=== PATIENT | female | born 1950 | race Hispanic/Latino ===

== ENCOUNTER 2018-03-07 10:30 | Outpatient (CLI) | payer MEDICARE | END 2018-03-07 10:31 | disposition home or self-care (01) | LOC: BICRAD 10:30 | PROVIDERS: ATTEND Family Medicine | DX: I50.9 Heart failure, unspecified (principal); I51.7 Cardiomegaly | CPT/HCPCS: 71046 ==

== ENCOUNTER 2019-08-22 11:56 | Outpatient (CLI) | payer MEDICARE ==
--- NOTE | 2019-08-22 13:04 | MMO ---
Bilateral MAMMO Bilat Screen [facility]. CLINICAL HISTORY: Patient is 69 years old and is seen for screening. The patient has the following family history of breast cancer: daughter, at age 33. The patient has no personal history of cancer. VIEWS: The views performed were: bilateral craniocaudal with tomosynthesis and bilateral mediolateral oblique with tomosynthesis. This study has been interpreted with the assistance of computer-aided detection. MAMMOGRAM FINDINGS: There are scattered fibroglandular densities. Benign calcifications are noted bilaterally. There are no suspicious masses, suspicious calcifications, or new areas of architectural distortion. IMPRESSION: THERE IS NO MAMMOGRAPHIC EVIDENCE OF MALIGNANCY. A ROUTINE FOLLOW-UP MAMMOGRAM IN 1 YEAR IS RECOMMENDED. THE RESULTS OF THIS EXAM WERE SENT TO THE PATIENT. ACR BI-RADS Category 2 - Benign finding MAMMOGRAPHY NOTE: 1. A negative mammogram report should not delay a biopsy if a dominant of clinically suspicious mass is present. 2. Approximately 10% to 15% of breast cancers are not detected by mammography. 3. Adenosis and dense breasts may obscure an underlying neoplasm. Reported by: AGLO HELM MD Electonically Signed: [id number]
== END 2019-08-22 11:57 | disposition home or self-care (01) ==
LOC: BICMAMMO 11:56
PROVIDERS: ATTEND Family Medicine
DX: Z12.31 Encounter for screening mammogram for malignant neoplasm of breast (principal); Z80.3 Family history of malignant neoplasm of breast
CPT/HCPCS: 77063; 77067

== ENCOUNTER 2020-09-23 10:26 | Inpatient (IN) | payer MEDICARE ==
[~2020-09-23 10:26] MED LIST: Dexamethasone 20 MG/5 ML VIAL ONE; Lidocaine 1% PF 5 ML VIAL ONE; Ondansetron PF 4 MG/2 ML Vial ONE; PHENYLEPHRINE-NS 100 MCG/ML 10 ML SYRINGE ONE; PROPOFOL 200 MG/20 ML VIAL ONE; Succinylcholine 200 MG/10 ml SYRINGE FS ONE
--- NOTE | 2020-09-23 11:16 | RAD ---
EXAM: Two views chest PROVIDED CLINICAL HISTORY: Chest pain. Shortness of breath and edema. COMPARISON: 09/23/2019 and 07/24/2020 FINDINGS: Again noted is marked enlargement of the cardiac silhouette. An associated pericardial effusion with be difficult to exclude based on this exam. Pulmonary vasculature is within normal limits. There is atelectasis present at the right lung base. No other interval change. IMPRESSION: Marked cardiomegaly. Associated pericardial effusion cannot be excluded. Atelectasis right lung base.
[2020-09-23 11:17] LABS: #Eosinphils 0.1 thou/uL (0.0-0.7); #Lymphocytes 1.3 thou/uL (1.20-3.40); #Monocytes 0.3 thou/uL (0.11-0.59); #Neutrophils 4.1 thou/uL (1.40-6.50); %Basophils 0.8 % (0.0-1.0); %Eosinophils 1.9 % (0.0-10.0); %Lymphocytes 21.5 % (21.0-51.0); %Monocytes 5.8 % (0.0-10.0); %Neutrophils 69.9 % (42.0-75.0); Mean Corpuscular HGB CONC 31.5 g/dL (32.0-36.0); Mean Corpuscular Hemoglobin 30.6 pg (27.0-31.0); Mean Corpuscular Volume 97.1 fL (78.0-98.0); Mean Platelet Volume 9.6 fL (7.4-10.4); Platelet Count 179 thou/uL (130-400); Red Blood Cell (RBC) Count 5.22 mill/uL (4.20-5.40); White Blood Cell (WBC) Count 5.8 thou/uL (4.8-10.8)
[2020-09-23 11:39] LABS: ALT (SGPT) 18 U/L (8-55); AST (SGOT) 22 U/L (5-34); Albumin 3.5 g/dL (3.4-4.8); Alkaline Phosphatase 77 U/L (40-110); Anion Gap 12 mmol/L (10-20); BUN (Urea Nitrogen) 13 mg/dL (9.8-20.1); Bilirubin, Total 0.7 mg/dL (0.2-1.2); Calc. Creatinine Clearance 0 mL/min (70-130); Calcium 8.8 mg/dL (7.8-10.44); Carbon Dioxide 36 mmol/L (23-31); Chloride 102 mmol/L (98-107); Globulin 2.9 g/dL (2.4-3.5); Glucose 94 mg/dL (83-110); Potassium 3.9 mmol/L (3.5-5.1); Protein, Total 6.4 g/dL (6.0-8.3); Sodium 146 mmol/L (136-145)
[2020-09-23] MEDS ORDERED: EPINEPHrine 1 MG/ML AMP ONE (12:33)
[2020-09-23] MEDS ORDERED: Bupivacaine PF 0.5% 30 ML VIAL ONE (12:33)
[2020-09-23] MEDS ORDERED: Fentanyl 100 MCG/2 ML VIAL ONE (12:50)
[2020-09-23] MEDS ORDERED: Midazolam HCl 2 mg/2 ml Vial ONE (12:50)
[2020-09-23] MEDS ORDERED: Phenylephrine 10 MG/ML VIAL ONE (12:51)
[2020-09-23] MEDS ORDERED: Ketamine 50 MG/ML (10ML VIAL) ONE (12:51)
[2020-09-23 12:55] LABS: SARS-CoV-2 NAA Rapid Test Not Detected (NotDetected)
--- NOTE | 2020-09-23 12:57 | PDOC.HHP ---
Hospitalist HPI - History of Present Illness shortness of breath History of Present Illness: Patient was sent from cardiology clinic for increasing shortness of breath with edema, patient has underlying history of COPD and CHF, patient is also on chronic anticoagulation therapy, patient has worsening shortness of breath for last several days, she had regular visit with cardiology today and subsequently patient was sent to emergency room, patient had echocardiography which showed significantly enlarged pericardial effusion, cardiovascular surgeon was also notified and patient was taken to the OR for pericardial window. Patient was also hypoxic in the clinic, ED Course: BP: 146/77, Pulse: 71, Resp: 17, Temp: 98.4 (Oral), Pain: 0, O2 sat: 97 on (2L Oxygen), Time: 09/23/2020 10:27. VITAL SIGNS TueSep 23, 2020 11:32 CORTES Narayan, Olesya BP: 145/85, MAP: 105, Pulse: 73, Resp: 24 (Non-Labored), Temp: 98.3 (Oral), Pain: 0, O2 sat: 94 on (2L Oxygen), Time: 09/23/2020 11:32. VITAL SIGNS TueSep 23, 2020 12:23 CORTES Hollins, [place] BP: 129/93, MAP: 105, Pulse: 67, Resp: 25 (Non-Labored), Temp: 98.4 (Oral), Pain: 0, O2 sat: 94 on (2L Oxygen), Time: 09/23/2020 12:23. Hospitalist ROS - Review of Systems Constitutional: denies: fever, chills, sweats, weakness, malaise, other ENT: denies: ear pain, ear discharge, nose pain, nose discharge, nose congestion, mouth pain, mouth swelling, throat pain, throat swelling, other Respiratory: reports: shortness of breath, SOB with excertion. denies: cough, dry, hemoptysis, pleuritic pain, sputum, wheezing, other Cardiovascular: reports: edema. denies: chest pain, palpitations, orthopnea, paroxysmal noc. dyspnea, light headedness, other Gastrointestinal: denies: nausea, vomiting, abdominal pain, diarrhea, constipation, melena, hematochezia, other Genitourinary: denies: dysuria, frequency, incontinence, hematuria, retention, other Musculoskeletal: denies: neck pain, shoulder pain, arm pain, back pain, hand pain, leg pain, foot pain, other Skin: denies: rash, lesions, marlene, bruising, other - Medication Medications: KNOWN ALLERGIES No Known Drug Allergies CURRENT MEDICATIONS carvedilol TueSep 23, 2020 11:47 CORTES Hollins, [place] TABLET : Strength - 12.5 mg : ORAL Patient Dose: 1 tab(s) Oral 2 times a day. furosemide oral TueSep 23, 2020 11:47 CORTES Hollins [place] TABLET : Strength - 40 mg : ORAL Patient Dose: 1 tab(s) Oral once a day (in the morning). lisinopril TueSep 23, 2020 11:47 CORTES Hollins Oswaldo TABLET : Strength - 5 mg : ORAL Patient Dose: 10 mg Oral once a day. Xarelto TueSep 23, 2020 11:48 CORTES Hollins Oswaldo tablet : Strength - 10 mg : ORAL Patient Dose: 5 mg Oral 2 times a day. amiodarone oral TueSep 23, 2020 11:49 CORTES Hollins Oswaldo tablet : Strength - 200 mg : ORAL Patient Dose: 200 mg Oral once a day. Resuscitation Status - Order Detail: 09/23/20 12:51 Resuscitation Status Routine Resuscitation Status: FULL: Full Resuscitation Hospitalist History - Past Medical History Other Medical History: Hypertension COPD Chronic diastolic heart failure Chronic atrial fibrillation Chronic anticoagulation - Past Surgical History Other Surgical History: Appendicectomy Cholecystectomy - Family History Other Family History: No strong family history of premature coronary artery disease stroke or cancer - Social History Other Social History: Patient lives at home, no history of tobacco alcohol or illicit drug abuse - Exam General Appearance: NAD, awake alert Eye: PERRL, anicteric sclera ENT: normocephalic atraumatic, no oropharyngeal lesions Neck: symmetric, no JVD, no thyromegaly Heart: no murmur, no gallops, irregular Respiratory: no wheezes, no rales, no ronchi Gastrointestinal: soft, non-tender, normal bowel sounds Extremities: no clubbing, 1+ LE edema Skin: normal turgor, no lesions Neurological: no focal deficits Musculoskeletal: normal tone, normal strength Psychiatric: normal affect, normal behavior, A&O x 3 Hospitalist Results - Labs Result Diagrams: 09/23/20 11:09 09/23/20 11:09 Lab results: WBC 5.8 thou/uL (4.8-10.8) 09/23/20 11:09 Hgb 16.0 g/dL (12.0-16.0) 09/23/20 11:09 Hct 50.7 % (36.0-47.0) H 09/23/20 11:09 MCV 97.1 fL (78.0-98.0) 09/23/20 11:09 Plt Count 179 thou/uL (130-400) 09/23/20 11:09 Neutrophils % 69.9 % (42.0-75.0) 09/23/20 11:09 Sodium 146 mmol/L (136-145) H 09/23/20 11:09 Potassium 3.9 mmol/L (3.5-5.1) 09/23/20 11:09 Chloride 102 mmol/L (98-107) 09/23/20 11:09 Carbon Dioxide 36 mmol/L (23-31) H 09/23/20 11:09 BUN 13 mg/dL (9.8-20.1) 09/23/20 11:09 Creatinine 0.82 mg/dL (0.6-1.1) 09/23/20 11:09 Glucose 94 mg/dL (83-110) 09/23/20 11:09 Calcium 8.8 mg/dL (7.8-10.44) 09/23/20 11:09 Total Bilirubin 0.7 mg/dL (0.2-1.2) 09/23/20 11:09 AST 22 U/L (5-34) 09/23/20 11:09 ALT 18 U/L (8-55) 09/23/20 11:09 Alkaline Phosphatase 77 U/L (40-110) 09/23/20 11:09 Troponin I 0.027 ng/mL (< 0.028) 09/23/20 11:09 B-Natriuretic Peptide 555.2 pg/mL (0-100) H 09/23/20 11:09 Serum Total Protein 6.4 g/dL (6.0-8.3) 09/23/20 11:09 Albumin 3.5 g/dL (3.4-4.8) 09/23/20 11:09 - EKG Interpretation EK lead EKG shows, atrial fibrillation with controlled ventricular response, Rate (beats per minute): 75, Motion artifact. Rate controlled A. fib. QTC 506. Normal axis. - Radiology Interpretation Chest x-ray Status: image reviewed by me Additional Comment: IMPRESSION: Marked cardiomegaly. Associated pericardial effusion cannot be excluded. Atelectasis right lung base. Hospitalist H&P A/P - Problem (1) Acute on chronic diastolic ACC/AHA stage C congestive heart failure Code(s): I50.33 - ACUTE ON CHRONIC DIASTOLIC (CONGESTIVE) HEART FAILURE Status: Acute (2) Pericardial effusion Code(s): I31.3 - PERICARDIAL EFFUSION (NONINFLAMMATORY) Status: Acute (3) COPD (chronic obstructive pulmonary disease) Status: Chronic Qualifiers: Emphysema type: unspecified (4) Atrial fibrillation Code(s): I48.91 - UNSPECIFIED ATRIAL FIBRILLATION Status: Chronic Qualifiers: Atrial fibrillation type: unspecified chronic Qualified Code(s): I48.20 - Chronic atrial fibrillation, unspecified; I48.2 - Chronic atrial fibrillation (5) Chronic anticoagulation Code(s): Z79.01 - [facility] (CURRENT) USE OF ANTICOAGULANTS Status: Chronic (6) Hypertension Code(s): I10 - ESSENTIAL (PRIMARY) HYPERTENSION Status: Chronic Qualifiers: Hypertension type: essential hypertension Qualified Code(s): I10 - Essent ial (primary) hypertension - Plan Plan: Plan Patient is going to go for pericardial window by cardiovascular surgeon and subsequently will closely monitor in IMCU Echocardiography done and result is pending Cardiology consultation Cardiovascular surgeon consultation Monitoring on telemetry floor We will resume her home medication Postoperative care as per cardiothoracic surgeon DVT prophylaxis SCD GI prophylaxis Pepcid 20 mg twice daily CODE STATUS patient is full code
[2020-09-23] MEDS ORDERED: CEFAZOLIN 2 GM in Premix Bag 1 BAG IVPB SCH (13:15)
[2020-09-23] MEDS ORDERED: Zolpidem Tartrate 5 MG TAB PO PRN (13:56)
[2020-09-23] MEDS ORDERED: Bisacodyl 10 MG SUPP PR PRN (13:56)
[2020-09-23] MEDS ORDERED: Calcium Carbonate 500 MG ChewTAB PO PRN (13:56)
[2020-09-23] MEDS ORDERED: Ondansetron PF 4 MG/2 ML Vial IVP PRN (13:56)
[2020-09-23] MEDS ORDERED: Loperamide HCl 2 MG CAP PO PRN (13:56)
[2020-09-23] MEDS ORDERED: Ondansetron ODT 4 MG TAB PO PRN (13:56)
[2020-09-23] MEDS ORDERED: Promethazine HCl 25 MG/ML VIAL SLOW IVP PRN (14:00)
[2020-09-23] MEDS ORDERED: Ondansetron HCl/PF 4 MG/2 ML Vial IVP PRN (14:00)
[2020-09-23] MEDS ORDERED: hydrALAZINE 20 MG/ML VIAL ONE (15:00)
--- NOTE | 2020-09-23 15:39 | RAD ---
EXAM: XR Chest 1 View Portable PROVIDED CLINICAL HISTORY: Respiratory insufficiency COMPARISON: 09/23/2020 10:57 AM FINDINGS: The cardiac silhouette appears enlarged, though less conspicuously so than on prior. Endotracheal tub e is noted, tip of which terminates in the region of the thoracic inlet. Bibasilar subsegmental atelectatic changes are seen. Left pleural fluid cannot be excluded. There is no evidence for pneumot horax. IMPRESSION: As above.
[2020-09-23] MEDS: HYDROcodone/Acetaminophen 5/325 mg Tablet PO PRN ×2 (18:00→21:38)
--- NOTE | 2020-09-23 18:32 | OP ---
DATE OF PROCEDURE: 09/23/2020 PREOPERATIVE DIAGNOSIS: Large symptomatic pericardial effusion. POSTOPERATIVE DIAGNOSIS: Large symptomatic pericardial effusion. PROCEDURE PERFORMED: Pericardial window with biopsy. ANESTHESIA: General endotracheal. ESTIMATED BLOOD LOSS: Minimal. DRAINS: A 19-[place]awaf drain. SPECIMENS: 1. Pericardium for pathology. 2. Pericardial fluid for cytology. DESCRIPTION OF PROCEDURE: After consent was obtained, the patient was brought to the operating room and placed in supine position on the operating table. Appropriate central line was placed and general endotracheal anesthesia was induced. Chest was prepped and draped in usual sterile fashion. A skin incision was made over the xiphoid. Xiphoid was resected. Pericardium was exposed and sharply entered. 1200 mL of clear straw-colored fluid was evacuated. A piece of pericardium was also taken and sent for pathology. A 19-[place] Nawaf drain was placed in the pericardium. Wounds were infiltrated with 0.5% Marcaine with epinephrine. Wounds were then closed in layers and Dermabond applied to the skin. The patient was awakened, extubated, and transferred to the recovery room in stable condition. Needle, sponge, and instrument counts were all reported as correct at the end of the procedure. Job ID: [id number]
[2020-09-23 19:27] LABS: Troponin I 0.044 ng/mL (< 0.028)
[2020-09-23] MEDS: Famotidine 20 MG TAB PO SCH (21:30)
[2020-09-23] MEDS: CEFAZOLIN 2 GM in Premix Bag 1 BAG IVPB SCH (21:31)
[2020-09-24 04:37] LABS: ALT (SGPT) 19 U/L (8-55); AST (SGOT) 27 U/L (5-34); Albumin 3.5 g/dL (3.4-4.8); Alkaline Phosphatase 75 U/L (40-110); Anion Gap 12 mmol/L (10-20); BUN (Urea Nitrogen) 22 mg/dL (9.8-20.1); Bilirubin, Total 0.7 mg/dL (0.2-1.2); Calc. Creatinine Clearance 57 mL/min (70-130); Calcium 8.5 mg/dL (7.8-10.44); Carbon Dioxide 35 mmol/L (23-31); Chloride 99 mmol/L (98-107); Globulin 3.1 g/dL (2.4-3.5); Glucose 136 mg/dL (83-110); Potassium 4.1 mmol/L (3.5-5.1); Protein, Total 6.6 g/dL (6.0-8.3); Sodium 142 mmol/L (136-145)
[2020-09-24 04:41] LABS: #Lymphocytes 0.7 thou/uL (1.20-3.40); #Monocytes 0.6 thou/uL (0.11-0.59); #Neutrophils 11.6 thou/uL (1.40-6.50); %Basophils 0.1 % (0.0-1.0); %Eosinophils 0.1 % (0.0-10.0); %Lymphocytes 5.4 % (21.0-51.0); %Monocytes 4.7 % (0.0-10.0); %Neutrophils 89.7 % (42.0-75.0); Hemoglobin 16.7 g/dL (12.0-16.0); Mean Corpuscular HGB CONC 31.4 g/dL (32.0-36.0); Mean Corpuscular Hemoglobin 30.9 pg (27.0-31.0); Mean Corpuscular Volume 98.4 fL (78.0-98.0); Mean Platelet Volume 10.5 fL (7.4-10.4); Platelet Count 195 thou/uL (130-400); RBC Distribution Width 16.2 % (11.5-14.5); Red Blood Cell (RBC) Count 5.39 mill/uL (4.20-5.40); White Blood Cell (WBC) Count 12.9 thou/uL (4.8-10.8)
[2020-09-24] MEDS: CEFAZOLIN 2 GM in Premix Bag 1 BAG IVPB SCH ×2 (06:06→14:26)
[2020-09-24] MEDS: HYDROcodone/Acetaminophen 5/325 mg Tablet PO PRN ×2 (06:14→18:12)
--- NOTE | 2020-09-24 06:39 | CON ---
DATE OF CONSULTATION: 09/23/2020 HISTORY OF PRESENT ILLNESS: Ms. Augustin is a 70-year-old woman, who was seen in Dr. Reynoso office today and sent to the emergency room. She has a longstanding history of cardiomegaly, atrial fibrillation, severe LVH, and depressed left ventricular ejection fraction. She has had a long-standing pericardial effusion. She had numerous visits for all the above. She has been seen in [place] recently to rule out amyloidosis, which on cardiac MRI was negative. She presents short of breath and just not feeling well today. She has on monitor atrial fibrillation with a ventricular rate in the 60s. Blood pressure is 120/72. She has no chest pain. Oxygen saturations are 98% on 2 L nasal cannula. PAST MEDICAL HISTORY: 1. Cardiomegaly. 2. Depressed left ventricular ejection fraction. 3. Pericardial effusion. 4. Left ventricular hypertrophy. 5. Hypertension. 6. Congestive heart failure. 7. Dyslipidemia. 8. Atrial fibrillation. PAST SURGICAL HISTORY: 1. Cholecystectomy. 2. Appendectomy. ALLERGIES: NONE. CURRENT MEDICATIONS: 1. Carvedilol 12.5 mg b.i.d. 2. Lasix 40 mg daily. 3. Lisinopril 5 mg daily. 4. Xarelto 10 mg b.i.d. 5. Amiodarone 200 mg daily. REVIEW OF SYSTEMS: A 10-point review of systems is performed with the assistance of her daughter and is negative except as above. PHYSICAL EXAMINATION: GENERAL: This is a diminutive elderly woman resting fairly comfortably in the emergency room. VITAL SIGNS: Heart rate is 67, blood pressure is 129/93, temperature is 98.4, oxygen saturations are 98% on 2 L nasal cannula. HEENT: Sclerae nonicteric. Pupils equal and round bilaterally. NECK: Supple. She has no carotid bruit. CHEST: Clear bilaterally with diminished breath sounds. HEART: Rhythm is irregularly irregular. Her heart tones are severely diminished. ABDOMEN: Soft and nontender. EXTREMITIES: There is mild edema. LABORATORY DATA: Of note, hemoglobin is 16, platelet count 179,000. Potassium is 3.9, creatinine is 0.92. Chest x-ray shows extreme cardiomegaly with the heart stretching from one chest wall to the other. Echocardiogram shows a large pericardial effusion. Left ventricular wall is thick. ASSESSMENT AND PLAN: Large pericardial effusion. I have discussed drainage with a pericardial window with the patient and her daughter and they are agreeable for us to proceed. We will make plans for as soon as the operating room is available. Job ID: [id number]
[2020-09-24] MEDS ORDERED: FLU VACC QS2020-21(65YR UP)/PF 240 MCG/0.7 ML SYRINGE IM ONE (09:00)
[2020-09-24] MEDS: Famotidine 20 MG TAB PO SCH ×2 (09:18→20:37)
--- NOTE | 2020-09-24 09:35 | RAD ---
CHEST 1 VIEW: Date: 09/24/2020 INDICATINO: History of post pericardial window procedure. COMPARISON: Prior exam dated 09/23/2020. FINDINGS: There is stable cardiomegaly. The patient has been extubated. There is subsegmental atelectasis persi sting within the left mid lung. Right-sided pleural parenchymal opacity has developed, suspicious for a small right pleural effusion and right basilar atelectasis. No pneumothorax is evident. IMPRESSION: 1. Increasing right-sided pleural effusion and right basilar atelectasis. 2. Persistent left basilar atelectasis. 3. Persistent cardiomegaly and mild pulmonary vascular congestion. POS: BH
[2020-09-24] MEDS: Senokot S 8.6-50 MG TAB PO PRN (12:14)
--- NOTE | 2020-09-24 13:58 | PRG ---
DATE OF SERVICE: 09/24/2020 SUBJECTIVE: Ms. Augustin is status post pericardial window. She had 1200 mL of pericardial fluid drained. Per Dr. Kishore Puckett's note, the fluid appeared straw colored. OBJECTIVE: VITAL SIGNS: Blood pressure 120/67, pulse 85, and temperature afebrile. LUNGS: Clear to auscultation. HEART: Irregularly irregular. ABDOMEN: Soft, nontender, and nondistended. EXTREMITIES: No edema. PERTINENT LABORATORY DATA: Hemoglobin 16.7, white blood cell count 12.9, and platelet count 195. Creatinine 1.07. IMPRESSION: 1. Pericardial effusion status post pericardial window. 2. Atrial fibrillation. 3. Severe hypertrophic cardiomyopathy. RECOMMENDATIONS: Ms. Augustin is doing much better. She had significant amount of fluid drained recently. Eliquis has been discontinued. Her heart rate has been stable despite evidence of 2 large pericardial effusions in the past. I am unsure her atrial fibrillation contributed much to her symptomatology, but we will await in the coming weeks whether she truly was symptomatic from atrial fibrillation or the effusion. Otherwise, I have no further recommendations. Plan is ICD and possible cardioversion as an outpatient. Job ID: [id number]
[2020-09-24] MEDS ORDERED: HumaLOG 300 UNITS/3 ML VIAL SC SCH (16:45)
--- NOTE | 2020-09-24 16:51 | PDOC.HOSPP ---
- Subjective Encounter Date: 09/24/20 Encounter Time: 13:00 Subjective: pt up in bed no complains. - Objective Vital Signs & Weight: Vital Signs (12 hours) Temp Resp Pulse Ox 09/24/20 16:00 97.3 F L 09/24/20 11:33 96.8 F L 09/24/20 07:30 97.0 F L 09/24/20 06:00 20 96 Weight Weight 168 lb Most Recent Monitor Data Heart Rate from ECG 72 NIBP 115/62 NIBP BP-Mean 79 Respiration from ECG 17 SpO2 95 I&O: 09/23/20 09/24/20 09/25/20 06:59 06:59 06:59 Intake Total 290 300 Output Total 500 Balance -210 300 Result Diagrams: 09/25/20 03:31 09/25/20 03:31 Hospitalist ROS - Review of Systems Cardiovascular: denies: chest pain, palpitations, orthopnea, paroxysmal noc. dyspnea, edema, light headedness, other Gastrointestinal: denies: nausea, vomiting, abdominal pain, diarrhea, constipation, melena, hematochezia, other Genitourinary: denies: dysuria, frequency, incontinence, hematuria, retention, other - Medication Medications: Active Medications Generic Name Dose Route Start Last Admin Trade Name Freq PRN Reason Stop Dose Admin Hydrocodone Bitart/Acetaminophen 1 tab 09/23/20 13:56 09/24/20 06:14 Hydrocodone/Acetaminophen 5/325 Mg Tablet PO 1 tab Q4H PRN Administration Moderate Pain (4-6) Famotidine 20 mg 09/23/20 21:00 09/24/20 09:18 Famotidine 20 Mg Tab PO 20 mg BID RHODA Administration Ondansetron HCl 4 mg 09/23/20 13:56 09/24/20 10:13 Ondansetron Pf 4 Mg/2 Ml Vial IVP 4 mg Q6H PRN Administration Nausea/Vomiting Senna/Docusate Sodium 2 tab 09/23/20 13:56 09/24/20 12:14 Senokot S 8.6-50 Mg Tab PO 2 tab BID PRN Administration Constipation - Exam Neck: negative: supple, symmetric, no JVD, no thyromegaly, no lymphadenopathy, no carotid bruit, JVD Heart: negative: RRR, no murmur, no gallops, no rubs, normal peripheral pulses, irregular, diminshed peripheral pulses, murmur present, II/IV, III/IV Respiratory: negative: CTAB, no wheezes, no rales, no ronchi, normal chest expansion, no tachypnea, normal percussion, rales, rhonchi, tachypneic, wheezes Gastrointestinal: negative: soft, non-tender, non-distended, normal bowel sounds, no palpable masses, no hepatomegaly, no splenomegaly, no bruit, no guarding, no rigidity, tender to palpation, distended, diminished bowl sounds, voluntary guarding Hosp A/P (1) Pericardial effusion Code(s): I31.3 - PERICARDIAL EFFUSION (NONINFLAMMATORY) Status: Acute (2) COPD (chronic obstructive pulmonary disease) Status: Chronic Qualifiers: Emphysema type: unspecified (3) Chronic anticoagulation Code(s): Z79.01 - [facility] (CURRENT) USE OF ANTICOAGULANTS Status: Chronic (4) Hypertension Code(s): I10 - ESSENTIAL (PRIMARY) HYPERTENSION Status: Chronic Qualifiers: Hypertension type: essential hypertension Qualified Code(s): I10 - Essential (primary) hypertension - Plan pt is having large output from his argelia. will continue to monitor.
[2020-09-24] MEDS ORDERED: Apixaban 5 MG TAB PO SCH (21:00)
[2020-09-24] MEDS ORDERED: Carvedilol 6.25 MG TAB PO SCH (21:00)
[2020-09-25 04:19] LABS: Hemoglobin 15.6 g/dL (12.0-16.0); Platelet Count 195 thou/uL (130-400)
[2020-09-25] MEDS: Amiodarone 200 MG TAB PO SCH (08:26)
[2020-09-25] MEDS: Multivit, Therapeutic 1 TAB PO SCH (08:26)
[2020-09-25] MEDS: Famotidine 20 MG TAB PO SCH ×2 (08:26→20:32)
[2020-09-25] MEDS ORDERED: Furosemide 40 MG TAB PO SCH (09:00)
[2020-09-25] MEDS ORDERED: Lisinopril 10 MG TAB PO SCH (09:00)
--- NOTE | 2020-09-25 17:21 | PDOC.HOSPP ---
- Subjective Encounter Date: 09/25/20 Encounter Time: 10:30 Subjective: pt up in bed no complains. - Objective Vital Signs & Weight: Vital Signs (12 hours) Temp 09/25/20 16:00 96.8 F L 09/25/20 12:00 96.6 F L 09/25/20 08:00 96.2 F L Weight Weight 168 lb Most Recent Monitor Data Heart Rate from ECG 79 NIBP 139/85 NIBP BP-Mean 103 Respiration from ECG 18 SpO2 99 I&O: 09/24/20 09/25/20 09/26/20 06:59 06:59 06:59 Intake Total 290 840 240 Output Total 500 660 Balance -210 180 240 Result Diagrams: 09/25/20 03:31 09/25/20 03:31 Hospitalist ROS - Review of Systems Cardiovascular: denies: chest pain, palpitations, orthopnea, paroxysmal noc. dyspnea, edema, light headedness, other Gastrointestinal: denies: nausea, vomiting, abdominal pain, diarrhea, constipation, melena, hematochezia, other Genitourinary: denies: dysuria, frequency, incontinence, hematuria, retention, other - Medication Medications: Active Medications Generic Name Dose Route Start Last Admin Trade Name Freq PRN Reason Stop Dose Admin Hydrocodone Bitart/Acetaminophen 1 tab 09/23/20 13:56 09/24/20 18:12 Hydrocodone/Acetaminophen 5/325 Mg Tablet PO 1 tab Q4H PRN Administration Moderate Pain (4-6) Amiodarone HCl 200 mg 09/25/20 09:00 09/25/20 08:26 Amiodarone 200 Mg Tab PO 200 mg DAILY RHODA Administration Famotidine 20 mg 09/23/20 21:00 09/25/20 08:26 Famotidine 20 Mg Tab PO 20 mg BID RHODA Administration Multivitamins 1 tab 09/25/20 09:00 09/25/20 08:26 Multivit, Therapeutic 1 Tab PO 1 tab DAILY RHODA Administration Ondansetron HCl 4 mg 09/23/20 13:56 09/24/20 10:13 Ondansetron Pf 4 Mg/2 Ml Vial IVP 4 mg Q6H PRN Administration Nausea/Vomiting Senna/Docusate Sodium 2 tab 09/23/20 13:56 09/24/20 12:14 Senokot S 8.6-50 Mg Tab PO 2 tab BID PRN Administration Constipation - Exam Heart: negative: RRR, no murmur, no gallops, no rubs, normal peripheral pulses, irregular, diminshed peripheral pulses, murmur present, II/IV, III/IV Respiratory: negative: CTAB, no wheezes, no rales, no ronchi, normal chest expansion, no tachypnea, normal percussion, rales, rhonchi, tachypneic, wheezes Gastrointestinal: negative: soft, non-tender, non-distended, normal bowel sounds, no palpable masses, no hepatomegaly, no splenomegaly, no bruit, no guarding, no rigidity, tender to palpation, distended, diminished bowl sounds, voluntary guarding Extremities: 1+ LE edema Hosp A/P (1) Pericardial effusion Code(s): I31.3 - PERICARDIAL EFFUSION (NONINFLAMMATORY) Status: Acute (2) COPD (chronic obstructive pulmonary disease) Status: Chronic Qualifiers: Emphysema type: unspecified (3) Chronic anticoagulation Code(s): Z79.01 - LONG-TERM (CURRENT) USE OF 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 will check kimani. pt's eliquis is on hold. will discharge when ok with cardio and cv surgery.
[2020-09-25] MEDS: HYDROcodone/Acetaminophen 5/325 mg Tablet PO PRN (20:32)
[2020-09-26] MEDS: Acetaminophen 325 MG TAB PO PRN (06:38)
[2020-09-26] MEDS: Amiodarone 200 MG TAB PO SCH (08:16)
[2020-09-26] MEDS: Multivit, Therapeutic 1 TAB PO SCH (08:16)
[2020-09-26] MEDS: Famotidine 20 MG TAB PO SCH ×2 (08:16→21:19)
--- NOTE | 2020-09-26 14:55 | PDOC.HOSPP ---
- Subjective Encounter Date: 09/26/20 Encounter Time: 10:30 Subjective: pt up in bed no complains - Objective Vital Signs & Weight: Vital Signs (12 hours) Temp 09/26/20 11:50 97.8 F 09/26/20 07:39 96.6 F L 09/26/20 03:56 97.0 F L Weight Weight 168 lb Most Recent Monitor Data Heart Rate from ECG 78 NIBP 127/78 NIBP BP-Mean 94 Respiration from ECG 20 SpO2 89 I&O: 09/25/20 09/26/20 09/27/20 06:59 06:59 06:59 Intake Total 840 795 600 Output Total 660 640 Balance 180 155 600 Result Diagrams: 09/25/20 03:31 09/25/20 03:31 Hospitalist ROS - Review of Systems Cardiovascular: denies: chest pain, palpitations, orthopnea, paroxysmal noc. dyspnea, edema, light headedness, other Gastrointestinal: denies: nausea, vomiting, abdominal pain, diarrhea, constipation, melena, hematochezia, other Genitourinary: denies: dysuria, frequency, incontinence, hematuria, retention, other - Medication Medications: Active Medications Generic Name Dose Route Start Last Admin Trade Name Freq PRN Reason Stop Dose Admin Acetaminophen 650 mg 09/23/20 13:56 09/26/20 06:38 Acetaminophen 325 Mg Tab PO 650 mg Q4H PRN Administration Headache/Fever/Mild Pain (1-3) Hydrocodone Bitart/Acetaminophen 1 tab 09/23/20 13:56 09/25/20 20:32 Hydrocodone/Acetaminophen 5/325 Mg Tablet PO 1 tab Q4H PRN Administration Moderate Pain (4-6) Amiodarone HCl 200 mg 09/25/20 09:00 09/26/20 08:16 Amiodarone 200 Mg Tab PO 200 mg DAILY RHODA Administration Famotidine 20 mg 09/23/20 21:00 09/26/20 08:16 Famotidine 20 Mg Tab PO 20 mg BID RHODA Administration Multivitamins 1 tab 09/25/20 09:00 09/26/20 08:16 Multivit, Therapeutic 1 Tab PO 1 tab DAILY RHODA Administration Ondansetron HCl 4 mg 09/23/20 13:56 09/24/20 10:13 Ondansetron Pf 4 Mg/2 Ml Vial IVP 4 mg Q6H PRN Administration Nausea/Vomiting Senna/Docusate Sodium 2 tab 09/23/20 13:56 09/24/20 12:14 Senokot S 8.6-50 Mg Tab PO 2 tab BID PRN Administration Constipation - Exam Neck: negative: supple, symmetric, no JVD, no thyromegaly, no lymphadenopathy, no carotid bruit, JVD Heart: negative: RRR, no murmur, no gallops, no rubs, normal peripheral pulses, irregular, diminshed peripheral pulses, murmur present, II/IV, III/IV Respiratory: negative: CTAB, no wheezes, no rales, no ronchi, normal chest expansion, no tachypnea, normal percussion, rales, rhonchi, tachypneic, wheezes Hosp A/P (1) Pericardial effusion Code(s): I31.3 - PERICARDIAL EFFUSION (NONINFLAMMATORY) Status: Acute (2) COPD (chronic obstructive pulmonary disease) Status: Chronic Qualifiers: Emphysema type: unspecified (3) Chronic anticoagulation Code(s): Z79.01 - LEGAL BILLING SPECIALIST (CURRENT) USE OF 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 will check kimani. pt's eliquis is on hold. will discharge when ok with cardio and cv surgery. 09/26 patient up in chair continues to have output from ARGELIA. This is her first time getting pericardial effusion. KIMANI sent will monitor. spoke with daughter and updated her.
[2020-09-26] MEDS: HYDROcodone/Acetaminophen 5/325 mg Tablet PO PRN (21:20)
[2020-09-27] MEDS: Famotidine 20 MG TAB PO SCH ×2 (08:57→20:58)
[2020-09-27] MEDS: Multivit, Therapeutic 1 TAB PO SCH (08:57)
[2020-09-27] MEDS: Amiodarone 200 MG TAB PO SCH (08:57)
--- NOTE | 2020-09-27 16:31 | PDOC.HOSPP ---
- Subjective Encounter Date: 09/27/20 Encounter Time: 10:00 Subjective: pt up in bed no complains - Objective Vital Signs & Weight: Vital Signs (12 hours) Temp Pulse Resp BP Pulse Ox 09/27/20 11:05 97.8 F 94 16 166/101 H 96 09/27/20 07:17 96.8 F L Weight Weight 168 lb Most Recent Monitor Data Heart Rate from ECG 79 NIBP 142/91 NIBP BP-Mean 108 Respiration from ECG 19 SpO2 92 I&O: 09/26/20 09/27/20 09/28/20 06:59 06:59 06:59 Intake Total 795 1090 Output Total 640 2805 Balance 155 -1715 Result Diagrams: 09/28/20 04:03 09/28/20 04:03 Hospitalist ROS - Review of Systems Cardiovascular: denies: chest pain, palpitations, orthopnea, paroxysmal noc. dyspnea, edema, light headedness, other Gastrointestinal: denies: nausea, vomiting, abdominal pain, diarrhea, constipation, melena, hematochezia, other Genitourinary: denies: dysuria, frequency, incontinence, hematuria, retention, other - Medication Medications: Active Medications Generic Name Dose Route Start Last Admin Trade Name Freq PRN Reason Stop Dose Admin Acetaminophen 650 mg 09/23/20 13:56 09/26/20 06:38 Acetaminophen 325 Mg Tab PO 650 mg Q4H PRN Administration Headache/Fever/Mild Pain (1-3) Hydrocodone Bitart/Acetaminophen 1 tab 09/23/20 13:56 09/26/20 21:20 Hydrocodone/Acetaminophen 5/325 Mg Tablet PO 1 tab Q4H PRN Administration Moderate Pain (4-6) Amiodarone HCl 200 mg 09/25/20 09:00 09/27/20 08:57 Amiodarone 200 Mg Tab PO 200 mg DAILY RHODA Administration Famotidine 20 mg 09/23/20 21:00 09/27/20 08:57 Famotidine 20 Mg Tab PO 20 mg BID RHODA Administration Multivitamins 1 tab 09/25/20 09:00 09/27/20 08:57 Multivit, Therapeutic 1 Tab PO 1 tab DAILY RHODA Administration Ondansetron HCl 4 mg 09/23/20 13:56 09/24/20 10:13 Ondansetron Pf 4 Mg/2 Ml Vial IVP 4 mg Q6H PRN Administration Nausea/Vomiting Senna/Docusate Sodium 2 tab 09/23/20 13:56 09/24/20 12:14 Senokot S 8.6-50 Mg Tab PO 2 tab BID PRN Administration Constipation - Exam Heart: negative: RRR, no murmur, no gallops, no rubs, normal peripheral pulses, irregular, diminshed peripheral pulses, murmur present, II/IV, III/IV Respiratory: negative: CTAB, no wheezes, no rales, no ronchi, normal chest expansion, no tachypnea, normal percussion, rales, rhonchi, tachypneic, wheezes Gastrointestinal: negative: soft, non-tender, non-distended, normal bowel sounds, no palpable masses, no hepatomegaly, no splenomegaly, no bruit, no guarding, no rigidity, tender to palpation, distended, diminished bowl sounds, voluntary guarding Extremities: negative: no cyanosis, no clubbing, no edema, 1+ LE edema, 2+ LE edema, clubbing Hosp A/P (1) Pericardial effusion Code(s): I31.3 - PERICARDIAL EFFUSION (NONINFLAMMATORY) Status: Acute (2) COPD (chronic obstructive pulmonary disease) Status: Chronic Qualifiers: Emphysema type: unspecified (3) Chronic anticoagulation Code(s): Z79.01 - HEALTH ASSOCIATE (CURRENT) USE OF 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 will check kimani. pt's eliquis is on hold. will discharge when ok with cardio and cv surgery. 09/26 patient up in chair continues to have output from ARGELIA. This is her first time getting pericardial effusion. KIMANI sent will monitor. spoke with daughter and updated her.
[2020-09-27] MEDS: Acetaminophen 325 MG TAB PO PRN (20:58)
[2020-09-28 04:38] LABS: Hemoglobin 15.6 g/dL (12.0-16.0); Platelet Count 197 thou/uL (130-400)
[2020-09-28] MEDS: Amiodarone 200 MG TAB PO SCH (08:44)
[2020-09-28] MEDS: Multivit, Therapeutic 1 TAB PO SCH (08:45)
[2020-09-28] MEDS: Famotidine 20 MG TAB PO SCH ×2 (08:45→21:02)
--- NOTE | 2020-09-28 10:35 | PRG ---
DATE OF SERVICE: 09/28/2020 SUBJECTIVE: Ms. Augustin is having less shortness of breath. Unfortunately, she continues to have significant drainage from pericardial drain. She has had more than 200 mL over the last 24 hours. OBJECTIVE: VITAL SIGNS: Blood pressure 120/59, pulse 65, and temperature 98.1. LUNGS: Clear to auscultation. HEART: Irregularly irregular. ABDOMEN: Soft, nontender, nondistended. EXTREMITIES: No edema. PERTINENT LABORATORY DATA: Include hemoglobin of 15.9. Creatinine 1.07, troponin 0.04. IMPRESSION: 1. Pericardial effusion, status post pericardial window. 2. Atrial fibrillation. 3. Severe left ventricular hypertrophy. RECOMMENDATIONS: 1. Continue to monitor drainage from her pericardial tube. 2. Atrial fibrillation appears controlled. Blood pressure also appears stable. Job ID: [id number]
--- NOTE | 2020-09-28 14:13 | PDOC.HOSPP ---
- Subjective Encounter Date: 09/28/20 Encounter Time: 10:30 Subjective: Patient up in bed no complaints. - Objective Vital Signs & Weight: Vital Signs (12 hours) Temp Pulse Resp BP Pulse Ox 09/28/20 08:00 97.7 F 81 16 167/89 H 96 09/28/20 04:00 98.1 F 65 18 120/59 L 97 Weight Weight 168 lb Most Recent Monitor Data Heart Rate from ECG 79 NIBP 142/91 NIBP BP-Mean 108 Respiration from ECG 19 SpO2 92 I&O: 09/27/20 09/28/20 09/29/20 06:59 06:59 06:59 Intake Total 1090 870 Output Total 2805 225 Balance -5185 645 Result Diagrams: 09/28/20 04:03 09/28/20 04:03 Additional Labs: Accuchecks 09/27/20 20:05 POC Glucose 138 H Hospitalist ROS - Review of Systems Cardiovascular: denies: chest pain, palpitations, orthopnea, paroxysmal noc. dyspnea, edema, light headedness, other Gastrointestinal: denies: nausea, vomiting, abdominal pain, diarrhea, constipation, melena, hematochezia, other Genitourinary: denies: dysuria, frequency, incontinence, hematuria, retention, other - Medication Medications: Active Medications Generic Name Dose Route Start Last Admin Trade Name Freq PRN Reason Stop Dose Admin Acetaminophen 650 mg 09/23/20 13:56 09/27/20 20:58 Acetaminophen 325 Mg Tab PO 650 mg Q4H PRN Administration Headache/Fever/Mild Pain (1-3) Hydrocodone Bitart/Acetaminophen 1 tab 09/23/20 13:56 09/26/20 21:20 Hydrocodone/Acetaminophen 5/325 Mg Tablet PO 1 tab Q4H PRN Administration Moderate Pain (4-6) Amiodarone HCl 200 mg 09/25/20 09:00 09/28/20 08:44 Amiodarone 200 Mg Tab PO 200 mg DAILY RHODA Administration Famotidine 20 mg 09/23/20 21:00 09/28/20 08:45 Famotidine 20 Mg Tab PO 20 mg BID RHODA Administration Multivitamins 1 tab 09/25/20 09:00 09/28/20 08:45 Multivit, Therapeutic 1 Tab PO 1 tab DAILY RHODA Administration Ondansetron HCl 4 mg 09/23/20 13:56 09/24/20 10:13 Ondansetron Pf 4 Mg/2 Ml Vial IVP 4 mg Q6H PRN Administration Nausea/Vomiting Senna/Docusate Sodium 2 tab 09/23/20 13:56 09/24/20 12:14 Senokot S 8.6-50 Mg Tab PO 2 tab BID PRN Administration Constipation - Exam Neck: negative: supple, symmetric, no JVD, no thyromegaly, no lymphadenopathy, no carotid bruit, JVD Heart: negative: RRR, no murmur, no gallops, no rubs, normal peripheral pulses, irregular, diminshed peripheral pulses, murmur present, II/IV, III/IV Respiratory: negative: CTAB, no wheezes, no rales, no ronchi, normal chest expansion, no tachypnea, normal percussion, rales, rhonchi, tachypneic, wheezes Gastrointestinal: negative: soft, non-tender, non-distended, normal bowel sounds, no palpable masses, no hepatomegaly, no splenomegaly, no bruit, no guarding, no rigidity, tender to palpation, distended, diminished bowl sounds, voluntary guarding Hosp A/P (1) Pericardial effusion Code(s): I31.3 - PERICARDIAL EFFUSION (NONINFLAMMATORY) Status: Acute (2) COPD (chronic obstructive pulmonary disease) Status: Chronic Qualifiers: Emphysema type: unspecified (3) Chronic anticoagulation Code(s): Z79.01 - 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 will check kimani. pt's eliquis is on hold. will discharge when ok with cardio and cv surgery. pt continues to have large amount of output from argelia. will check kimani. pt's eliqui s is on hold. will discharge when ok with cardio and cv surgery. 09/26 patient up in chair continues to have output from ARGELIA. This is her first time getting pericardial effusion. KIMANI sent will monitor. spoke with daughter and updated her. 09/28 patient still having significant output from ARGEILA. Discharge when okay with CV surgery and cardiology. Patient may require oxygen at home.
[2020-09-28] MEDS: HYDROcodone/Acetaminophen 5/325 mg Tablet PO PRN (16:03)
[2020-09-28 17:08] LABS: ANA Symphony (Qualitative) POSITIVE (Negative); ANA Symphony (Quantitative) 1.5 Ratio (< 0.7 Negative); CENP IgG Antibody 0.6 EliAU/mL (<7 Negative); Jo-1 IgG Antibody Less than 0.3 EliAU/mL (<7 Negative); RNP70 IgG Antibody Less than 0.3 EliAU/mL (<7 Negative); SSB/La IgG Antibody 1.6 EliAU/mL (<7 Negative); Scleroderma-70 IgG Antibody 0.7 EliAU/mL (<7 Negative); Smith D IgG Antibody 1.7 EliAU/mL (<7 Negative); dsDNA IgG Antibody 1.3 IU/mL (<10 Negative)
[2020-09-29] MEDS: Multivit, Therapeutic 1 TAB PO SCH (09:00)
[2020-09-29] MEDS: Amiodarone 200 MG TAB PO SCH (09:00)
[2020-09-29] MEDS: Famotidine 20 MG TAB PO SCH ×2 (09:00→20:03)
--- NOTE | 2020-09-29 16:30 | PDOC.HOSPP ---
- Subjective Encounter Date: 09/29/20 Encounter Time: 11:20 Subjective: pt up in bed no complains - Objective Vital Signs & Weight: Vital Signs (12 hours) Temp Pulse Resp BP Pulse Ox 09/29/20 15:30 98.5 F 75 18 158/100 H 96 09/29/20 12:06 97.9 F 83 18 142/92 H 96 09/29/20 07:31 98.5 F 82 17 135/88 95 Weight Weight 164 lb 8 oz Most Recent Monitor Data Heart Rate from ECG 79 NIBP 142/91 NIBP BP-Mean 108 Respiration from ECG 19 SpO2 92 I&O: 09/28/20 09/29/20 09/30/20 06:59 06:59 06:59 Intake Total 870 1720 Output Total 225 204 Balance 645 1516 Result Diagrams: 09/28/20 04:03 09/28/20 04:03 Hospitalist ROS - Review of Systems Cardiovascular: denies: chest pain, palpitations, orthopnea, paroxysmal noc. dyspnea, edema, light headedness, other Gastrointestinal: denies: nausea, vomiting, abdominal pain, diarrhea, constipation, melena, hematochezia, other Genitourinary: denies: dysuria, frequency, incontinence, hematuria, retention, other - Medication Medications: Active Medications Generic Name Dose Route Start Last Admin Trade Name Freq PRN Reason Stop Dose Admin Acetaminophen 650 mg 09/23/20 13:56 09/27/20 20:58 Acetaminophen 325 Mg Tab PO 650 mg Q4H PRN Administration Headache/Fever/Mild Pain (1-3) Hydrocodone Bitart/Acetaminophen 1 tab 09/23/20 13:56 09/28/20 16:03 Hydrocodone/Acetaminophen 5/325 Mg Tablet PO 1 tab Q4H PRN Administration Moderate Pain (4-6) Amiodarone HCl 200 mg 09/25/20 09:00 09/29/20 09:00 Amiodarone 200 Mg Tab PO 200 mg DAILY RHODA Administration Famotidine 20 mg 09/23/20 21:00 09/29/20 09:00 Famotidine 20 Mg Tab PO 20 mg BID RHODA Administration Multivitamins 1 tab 09/25/20 09:00 09/29/20 09:00 Multivit, Therapeutic 1 Tab PO 1 tab DAILY RHODA Administration Ondansetron HCl 4 mg 09/23/20 13:56 09/24/20 10:13 Ondansetron Pf 4 Mg/2 Ml Vial IVP 4 mg Q6H PRN Administration Nausea/Vomiting Senna/Docusate Sodium 2 tab 09/23/20 13:56 09/24/20 12:14 Senokot S 8.6-50 Mg Tab PO 2 tab BID PRN Administration Constipation - Exam Neck: negative: supple, symmetric, no JVD, no thyromegaly, no lymphadenopathy, no carotid bruit, JVD Heart: negative: RRR, no murmur, no gallops, no rubs, normal peripheral pulses, irregular, diminshed peripheral pulses, murmur present, II/IV, III/IV Respiratory: negative: CTAB, no wheezes, no rales, no ronchi, normal chest expansion, no tachypnea, normal percussion, rales, rhonchi, tachypneic, wheezes Hosp A/P (1) Pericardial effusion Code(s): I31.3 - PERICARDIAL EFFUSION (NONINFLAMMATORY) Status: Acute (2) COPD (chronic obstructive pulmonary disease) Status: Chronic Qualifiers: Emphysema type: unspecified (3) Chronic anticoagulation Code(s): Z79.01 - HALFWAY (CURRENT) USE OF 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 will check kimani. pt's eliquis is on hold. will discharge when ok with cardio and cv surgery. pt continues to have large amount of output from argelia. will check kimani. pt's eliquis is on hold. will discharge when ok with cardio and cv surgery. 09/26 patient up in chair continues to have output from ARGELIA. This is her first time getting pericardial effusion. KIMANI sent will monitor. spoke with daughter and updated her. 09/28 patient still having significant output from ARGELIA. Discharge when okay with CV surgery and cardiology. Patient may require oxygen at home. 09/29 patient's KIMANI is positive appears SSA is positive most likely Sjogren's syndrome. Using a sports athletic trainer explained this to the patient and the patient's son. Patient will follow up with rheumatology once she is okay to go home from CV surgery's perspective. She continues to have significant output from her ARGELIA drain.
[2020-09-29] MEDS: HYDROcodone/Acetaminophen 5/325 mg Tablet PO PRN (20:03)
--- NOTE | 2020-09-30 08:05 | PDOC.HOSPP ---
- Subjective Encounter Date: 09/30/20 Encounter Time: 08:03 Subjective: Patient seen and examined. No new complaints. No overnight events. Patient says she feels good. Says her RUTH drain has not been draining as much. Says she has not had BM in 1-2 days. Denies N/V. Denies chest pain, heart palpitations or SOB. Has no other questions. - Objective Vital Signs & Weight: Vital Signs (12 hours) Temp Pulse Resp BP Pulse Ox 09/30/20 03:34 98.6 F 71 16 139/79 98 09/30/20 00:00 72 Weight Weight 164 lb 8 oz Most Recent Monitor Data Heart Rate from ECG 79 NIBP 142/91 NIBP BP-Mean 108 Respiration from ECG 19 SpO2 92 I&O: 09/29/20 09/30/20 10/01/20 06:59 06:59 06:59 Intake Total 1720 1080 Output Total 204 65 90 Balance 1516 1015 -90 Result Diagrams: 09/28/20 04:03 09/28/20 04:03 EKG Reviewed by me: Yes Hospitalist ROS - Review of Systems Constitutional: denies: fever, chills Cardiovascular: denies: chest pain, palpitations, edema, light headedness Gastrointestinal: denies: nausea, vomiting, abdominal pain, diarrhea, melena, hematochezia Genitourinary: denies: dysuria, hematuria Neurological: denies: weakness, change in speech All other systems reviewed; all pertinent +/- noted in HPI/Subj - Medication Medications: Active Medications Generic Name Dose Route Start Last Admin Trade Name Freq PRN Reason Stop Dose Admin Acetaminophen 650 mg 09/23/20 13:56 09/27/20 20:58 Acetaminophen 325 Mg Tab PO 650 mg Q4H PRN Administration Headache/Fever/Mild Pain (1-3) Hydrocodone Bitart/Acetaminophen 1 tab 09/23/20 13:56 09/29/20 20:03 Hydrocodone/Acetaminophen 5/325 Mg Tablet PO 1 tab Q4H PRN Administration Moderate Pain (4-6) Amiodarone HCl 200 mg 09/25/20 09:00 09/29/20 09:00 Amiodarone 200 Mg Tab PO 200 mg DAILY RHODA Administration Famotidine 20 mg 09/23/20 21:00 09/29/20 20:03 Famotidine 20 Mg Tab PO 20 mg BID RHODA Administration Multivitamins 1 tab 09/25/20 09:00 09/29/20 09:00 Multivit, Therapeutic 1 Tab PO 1 tab DAILY RHODA Administration Ondansetron HCl 4 mg 09/23/20 13:56 09/24/20 10:13 Ondansetron Pf 4 Mg/2 Ml Vial IVP 4 mg Q6H PRN Administration Nausea/Vomiting Senna/Docusate Sodium 2 tab 09/23/20 13:56 09/24/20 12:14 Senokot S 8.6-50 Mg Tab PO 2 tab BID PRN Administration Constipation - Exam General Appearance: awake alert. negative: NAD, ill appearing Eye: anicteric sclera ENT: normocephalic atraumatic Heart: irregular. negative: no murmur, no gallops, no rubs Respiratory: CTAB, no wheezes, no rales, no ronchi, normal chest expansion, no tachypnea Gastrointestinal: soft, non-tender, non-distended, normal bowel sounds, no guarding, no rigidity Extremities: no cyanosis, no edema Skin: no rashes Neurological: no focal deficits Psychiatric: normal affect, A&O x 3 (singaporean speaker) Hosp A/P (1) Pericardial effusion Code(s): I31.3 - PERICARDIAL EFFUSION (NONINFLAMMATORY) Status: Acute (2) Acute on chronic diastolic ACC/AHA stage C congestive heart failure Code(s): I50.33 - ACUTE ON CHRONIC DIASTOLIC (CONGESTIVE) HEART FAILURE Status: Acute (3) Atrial fibrillation Code(s): I48.91 - UNSPECIFIED ATRIAL FIBRILLATION Status: Chronic Qualifiers: Atrial fibrillation type: unspecified chronic Qualified Code(s): I48.20 - Chronic atrial fibrillation, unspecified; I48.2 - Chronic atrial fibrillation (4) COPD (chronic obstructive pulmonary disease) Status: Chronic Qualifiers: Emphysema type: unspecified (5) Hypertension Code(s): I10 - ESSENTIAL (PRIMARY) HYPERTENSION Status: Chronic Qualifiers: Hypertension type: essential hypertension Qualified Code(s): I10 - Essentia l (primary) hypertension - Plan Plan: POD# 7 pericardial window RUTH drain had 65ml and 90mls output last 24 hours. Serous drainage. Patient may require oxygen at home. Discharge pending cardiology and [facility] recommendations. Continue to hold eliquis. Patient to follow up outpatient with Rheumatology. Discussed case with attending physician, Dr. Garner.
[2020-09-30] MEDS: Multivit, Therapeutic 1 TAB PO SCH (08:39)
[2020-09-30] MEDS: Amiodarone 200 MG TAB PO SCH (08:39)
[2020-09-30] MEDS: Famotidine 20 MG TAB PO SCH ×2 (08:39→20:55)
[2020-09-30] MEDS: Senokot S 8.6-50 MG TAB PO PRN (08:41)
[2020-10-01 05:14] LABS: #Eosinphils 0.1 thou/uL (0.0-0.7); #Lymphocytes 1.6 thou/uL (1.20-3.40); #Monocytes 0.6 thou/uL (0.11-0.59); #Neutrophils 3.2 thou/uL (1.40-6.50); %Basophils 0.6 % (0.0-1.0); %Eosinophils 1.4 % (0.0-10.0); %Lymphocytes 29.2 % (21.0-51.0); %Monocytes 11.3 % (0.0-10.0); %Neutrophils 57.6 % (42.0-75.0); Hemoglobin 16.7 g/dL (12.0-16.0); Mean Corpuscular HGB CONC 31.7 g/dL (32.0-36.0); Mean Corpuscular Hemoglobin 29.7 pg (27.0-31.0); Mean Corpuscular Volume 93.6 fL (78.0-98.0); Mean Platelet Volume 9.8 fL (7.4-10.4); Platelet Count 199 thou/uL (130-400); RBC Distribution Width 15.8 % (11.5-14.5); Red Blood Cell (RBC) Count 5.61 mill/uL (4.20-5.40); White Blood Cell (WBC) Count 5.6 thou/uL (4.8-10.8)
[2020-10-01 05:26] LABS: Anion Gap 13 mmol/L (10-20); BUN (Urea Nitrogen) 16 mg/dL (9.8-20.1); Calc. Creatinine Clearance 73 mL/min (70-130); Carbon Dioxide 28 mmol/L (23-31); Chloride 103 mmol/L (98-107); Glucose 90 mg/dL (83-110); Potassium 4.2 mmol/L (3.5-5.1); Sodium 140 mmol/L (136-145)
[2020-10-01] MEDS: Multivit, Therapeutic 1 TAB PO SCH (08:22)
[2020-10-01] MEDS: Famotidine 20 MG TAB PO SCH ×2 (08:22→21:26)
[2020-10-01] MEDS: Amiodarone 200 MG TAB PO SCH (08:22)
[2020-10-01] MEDS: methylPREDNISolone Sod Succ/PF 125 MG/2 ML VIAL IVP SCH (11:10)
--- NOTE | 2020-10-01 15:27 | PDOC.HOSPP ---
- Subjective Encounter Date: 10/01/20 Encounter Time: 09:00 Subjective: pt up in bed feels well - Objective Vital Signs & Weight: Vital Signs (12 hours) Temp Pulse Resp BP Pulse Ox 10/01/20 11:40 97.8 F 78 17 132/75 93 L 10/01/20 07:50 98.5 F 72 17 125/74 90 L 10/01/20 03:41 98.7 F 78 18 138/78 94 L Weight Weight 162 lb 3.2 oz Most Recent Monitor Data Heart Rate from ECG 79 NIBP 142/91 NIBP BP-Mean 108 Respiration from ECG 19 SpO2 92 I&O: 09/30/20 10/01/20 10/02/20 06:59 06:59 06:59 Intake Total 1080 840 Output Total 65 230 Balance 1015 610 Result Diagrams: 10/01/20 04:09 10/01/20 04:09 Hospitalist ROS - Review of Systems Respiratory: denies: cough, dry, shortness of breath, hemoptysis, SOB with excertion, pleuritic pain, sputum, wheezing, other Cardiovascular: denies: chest pain, palpitations, orthopnea, paroxysmal noc. dyspnea, edema, light headedness, other Gastrointestinal: denies: nausea, vomiting, abdominal pain, diarrhea, constipation, melena, hematochezia, other - Medication Medications: Active Medications Generic Name Dose Route Start Last Admin Trade Name Freq PRN Reason Stop Dose Admin Acetaminophen 650 mg 09/23/20 13:56 09/27/20 20:58 Acetaminophen 325 Mg Tab PO 650 mg Q4H PRN Administration Headache/Fever/Mild Pain (1-3) Hydrocodone Bitart/Acetaminophen 1 tab 09/23/20 13:56 09/29/20 20:03 Hydrocodone/Acetaminophen 5/325 Mg Tablet PO 1 tab Q4H PRN Administration Moderate Pain (4-6) Amiodarone HCl 200 mg 09/25/20 09:00 10/01/20 08:22 Amiodarone 200 Mg Tab PO 200 mg DAILY RHODA Administration Famotidine 20 mg 09/23/20 21:00 10/01/20 08:22 Famotidine 20 Mg Tab PO 20 mg BID RHODA Administration Methylprednisolone Sodium Succinate 125 mg 10/01/20 12:00 10/01/20 11:10 Methylprednisolone Sod Succ/Pf 125 Mg/2 Ml Vial IVP 125 mg 1200 RHODA Administration Multivitamins 1 tab 09/25/20 09:00 10/01/20 08:22 Multivit, Therapeutic 1 Tab PO 1 tab DAILY RHODA Administration Ondansetron HCl 4 mg 09/23/20 13:56 09/24/20 10:13 Ondansetron Pf 4 Mg/2 Ml Vial IVP 4 mg Q6H PRN Administration Nausea/Vomiting Senna/Docusate Sodium 2 tab 09/23/20 13:56 09/30/20 08:41 Senokot S 8.6-50 Mg Tab PO 2 tab BID PRN Administration Constipation - Exam Heart: negative: RRR, no murmur, no gallops, no rubs, normal peripheral pulses, irregular, diminshed peripheral pulses, murmur present, II/IV, III/IV Respiratory: negative: CTAB, no wheezes, no rales, no ronchi, normal chest expansion, no tachypnea, normal percussion, rales, rhonchi, tachypneic, wheezes Gastrointestinal: negative: soft, non-tender, non-distended, normal bowel sounds, no palpable masses, no hepatomegaly, no splenomegaly, no bruit, no guarding, no rigidity, tender to palpation, distended, diminished bowl sounds, voluntary guarding Hosp A/P (1) Pericardial effusion Code(s): I31.3 - PERICARDIAL EFFUSION (NONINFLAMMATORY) Status: Acute (2) COPD (chronic obstructive pulmonary disease) Status: Chronic Qualifiers: Emphysema type: unspecified (3) Chronic anticoagulation Code(s): Z79.01 - 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 will check kimani. pt's eliquis is on hold. will discharge when ok with cardio and cv surgery. pt continues to have large amount of output from argelia. will check kimani. pt's eliquis is on hold. will discharge when ok with cardio and cv surgery. 09/26 patient up in chair continues to have output from ARGELIA. This is her first time getting pericardial effusion. KIMANI sent will monitor. spoke with daughter and updated her. 09/28 patient still having significant output from ARGELIA. Discharge when okay with CV surgery and cardiology. Patient may require oxygen at home. 09/29 patient's KIMANI is positive appears SSA is positive most likely Sjogren's syndrome. Using a seismic interpreter explained this to the patient and the patient's son. Patient will follow up with rheumatology once she is okay to go home from CV surgery's perspective. She continues to have significant output from her ARGELIA drain. 10/01 pt having significant output from her argelia. I spoke with Dr Olea and started pt on steroids. He also recommended colchine but bc she is on amio will hold. I am hoping that this will help with slowing down her drainage. her pericardial drainage is serous.
[2020-10-02 06:25] VITALS: BMI 30.8
[2020-10-02 09:14] VITALS: BP 135/83; TEMP 97.7
[2020-10-02] MEDS: Multivit, Therapeutic 1 TAB PO SCH (09:19)
[2020-10-02] MEDS: Amiodarone 200 MG TAB PO SCH (09:19)
[2020-10-02] MEDS: Famotidine 20 MG TAB PO SCH (09:19)
[2020-10-02] MEDS: methylPREDNISolone Sod Succ/PF 125 MG/2 ML VIAL IVP SCH (11:35)
--- NOTE | 2020-10-02 12:54 | PDOC.DS.DS ---
Provider - Provider Date of Admission: 09/23/20 13:56 Date of Discharge: 10/02/20 Admitting Provider: Ghada Cerda MD Consultations: Cardiology (Edgardo), Other (CV surgery: Dr. Kishore Puckett) Primary Care Physician: AURELIA LOPEZ JR, MD Course - Hospital Course Hospital Course: Discharge diagnosis: 1. Pericardial effusion 2. New diagnosis of Sjogren's syndrome 3. Hypernatremia 4. COVID-19 PCR test negative Hospital course: Patient is a pleasant 70-year-old lady who was admitted to the hospital on September 23, 2020 for large pericardial effusion. She was seen by cardiology and CV surgery services and underwent pericardial window with biopsy. Cytology showed mesothelial cells, lymphocytes and neutrophils but no malignant cells. Pericardial biopsy did not show any malignancy and no significant inflammation. Patient was initially admitted to [facility], subsequently transferred to telemetry floor. She had further tests run to determine the etiology of pericardial effusion. MARCELL screen was positive and SS-AA/Ro IgG antibody was positive. The case was discussed with rheumatology service by the attending hospitalist and it was recommended that patient be started on prednisone and follow-up with eumatologist as outpatient. Patient's beta-ashwini and SOFIA inhibitor doses were also decreased due to slightly low blood pressures. COVID-19 PCR test was negative during this hospitalization. CV surgery recommended resuming apixaban. Patient is being discharged home on prednisone 20 mg daily for 7 days, then 10 mg daily as well as Protonix 40 mg daily for GI protection. Many thanks for allowing me to participate in your patient's care. Please feel free to contact me with any questions or concerns. Discharge destination: Home Total amount of time spent coordinating this discharge: 32 minutes Resuscitation Status: 09/23/20 12:51 Resuscitation Status Routine Resuscitation Status: FULL: Full Resuscitation - Labs Lab Results: 10/01/20 04:09 10/01/20 04:09 Abnormal Lab Results - Last 48 hrs 10/01/20 04:09: RBC 5.61 H, Hgb 16.7 H, Hct 52.5 H, MCHC 31.7 L, RDW 15.8 H, Monocytes % 11.3 H, Monocytes # 0.6 H - Physical Exam Vitals: Vital Signs (12 hours) Temp Pulse Resp BP Pulse Ox 10/02/20 12:05 92 L 10/02/20 08:57 97.7 F 70 12 135/83 92 L 10/02/20 04:58 95 10/02/20 04:00 97.6 F 74 14 152/79 H 95 Weight Weight 163 lb Most Recent Monitor Data Heart Rate from ECG 79 NIBP 142/91 NIBP BP-Mean 108 Respiration from ECG 19 SpO2 92 Physical Exam: The patient was seen and examined on the day of discharge. Patient denies chest pain or shortness of breath. Vital signs are stable. S1 and S2 are heard. Lungs are clear to auscultation bilaterally. Plan - Discharge Medications Prescriptions: Carvedilol [Coreg] 3.125 mg PO BID-WM #60 tab Lisinopril [Zestril] 5 mg PO DAILY #30 tab Home Medications: Medication Instructions Recorded Confirmed Type Amiodarone HCl [Pacerone] 1 tab PO DAILY 09/24/20 09/24/20 History Apixaban [Eliquis] 5 mg PO BID 09/24/20 09/24/20 History Furosemide 1 tab PO DAILY 09/24/20 09/24/20 History Multivit, Therapeutic [Theragran] 1 tab PO DAILY 09/24/20 09/24/20 History Carvedilol [Coreg] 3.125 mg PO BID-WM #60 tab 10/02/20 Rx Lisinopril [Zestril] 5 mg PO DAILY #30 tab 10/02/20 Rx Pantoprazole [Protonix] 40 mg PO DAILY tab 10/02/20 Rx predniSONE 20 mg PO QAM-WM tab 10/02/20 Rx Allergies: No Known Allergies Allergy (Verified 09/23/20 22:38) - Discharge Instructions Discharge Instructions:: Check your blood pressure and heart rate 3 times a day and shows readings to your primary care provider. Activity:: Activity as Tolerated Nourishment:: Heart Healthy Diet, Low Sodium Diet - Follow up Plan Referrals: Aurelia Lopez Jr, MD [Primary Care Provider] - 3 Days Sukhdev Olea MD [Active] - 7 Days Disposition: HOME Quality - Care Measures CORE MEASURES:: N/A
[2020-10-02] MEDS ORDERED: Carvedilol 3.125 MG TAB PO SCH (17:00)
[2020-10-03] MEDS ORDERED: predniSONE 20 MG TAB PO SCH (08:00)
[2020-10-03] MEDS ORDERED: Lisinopril 5 MG TAB PO SCH (09:00)
--- NOTE | 2020-10-04 14:47 | EKG ---
Test Reason : SOB Blood Pressure : / mmHG Vent. Rate : 075 BPM Atrial Rate : 081 BPM P-R Int : 000 ms QRS Dur : 100 ms QT Int : 454 ms P-R-T Axes : 000 -04 142 degrees QTc Int : 506 ms Atrial fibrillation rate controlled Abnormal ECG Baseline Artifact Present Confirmed by THU BRASWELL DO ([id number]), medical transcription editor CESARIO DENISE ([id number]) on 10/04/2020 2:46:47 PM Referred By: Confirmed By:THU BRASWELL DO
== END 2020-10-02 14:28 | disposition home health service (06) | DRG 270 ==
LOC: ERS 10:26 → SDC 13:27 → IMCU/EMU 13:56 → 2NO 09-27 12:37
PROVIDERS: ADMIT Internal Medicine; ATTEND Internal Medicine
PROC: 0W9D00Z Drainage of Pericardial Cavity with Drainage Device, Open Approach (ICD-10-PCS; principal; 2020-09-23)
PROC: 02BN0ZX Excision of Pericardium, Open Approach, Diagnostic (ICD-10-PCS; 2020-09-23)
DX: I31.3 Pericardial effusion (noninflammatory) (principal); I50.33 Acute on chronic diastolic (congestive) heart failure; E87.0 Hyperosmolality and hypernatremia; I48.20 Chronic atrial fibrillation, unspecified; I42.2 Other hypertrophic cardiomyopathy; Z20.828 Contact with and (suspected) exposure to other viral communicable diseases; M35.00 Sjogren syndrome, unspecified; I11.0 Hypertensive heart disease with heart failure; E78.5 Hyperlipidemia, unspecified; Z79.01 Long term (current) use of anticoagulants; Z90.49 Acquired absence of other specified parts of digestive tract; Z79.899 Other long term (current) drug therapy
CPT/HCPCS: 36415; 36416; 71045; 71046; 80048; 80053; 82565; 83880; 84484; 85014; 85018; 85025; 85049; 86038; 86225; 86235; 88112; 88305; 93005; 93306; 94760; J0171; J0360; J0690; J1100; J2250; J2370; J2405; J2704; J2930; J3010; J7620; S0020; U0002

== ENCOUNTER 2020-12-23 14:36 | Outpatient (CLI) | payer MEDICARE, OTHER | END 2020-12-23 14:37 | disposition home or self-care (01) | LOC: HS RAD 14:36 | PROVIDERS: ATTEND Student in an Organized Health Care Education/Training Program | DX: I69.391 Dysphagia following cerebral infarction (principal); R13.13 Dysphagia, pharyngeal phase | CPT/HCPCS: 74230 ==

== ENCOUNTER 2021-01-21 12:09 | Outpatient (CLI) | payer MEDICARE | END 2021-01-21 12:10 | disposition home or self-care (01) | LOC: CT 12:09 | PROVIDERS: ATTEND Orthopaedic Surgery | DX: I63.9 Cerebral infarction, unspecified (principal) | CPT/HCPCS: 70450 ==

== ENCOUNTER 2022-04-05 20:31 | Inpatient (IN) | payer MEDICARE ==
[2022-04-05] MEDS ORDERED: Cefepime 2 GM VIAL ONE (21:35)
[2022-04-05] MEDS ORDERED: Sodium Chloride 0.9% 100 ML ONE (21:36)
[2022-04-05] MEDS ORDERED: Acetaminophen 500 MG TAB ONE (21:38)
[2022-04-05 21:40] LABS: #Lymphocytes 1.4 thou/uL (1.20-3.40); #Monocytes 0.7 thou/uL (0.11-0.59); #Neutrophils 7.8 thou/uL (1.40-6.50); %Basophils 0.1 % (0.0-1.0); %Eosinophils 0.2 % (0.0-10.0); %Lymphocytes 13.7 % (21.0-51.0); %Monocytes 7.4 % (0.0-10.0); %Neutrophils 78.6 % (42.0-75.0); Hemoglobin 16.4 g/dL (12.0-16.0); Mean Corpuscular Hemoglobin 31.8 pg (27.0-31.0); Mean Corpuscular Volume 96.3 fL (78.0-98.0); Mean Platelet Volume 10.3 fL (7.4-10.4); Platelet Count 167 thou/uL (130-400); RBC Distribution Width 13.6 % (11.5-14.5); Red Blood Cell (RBC) Count 5.14 mill/uL (4.20-5.40); White Blood Cell (WBC) Count 9.9 thou/uL (4.8-10.8)
[2022-04-05 21:49] LABS: Bilirubin Negative (Negative); Blood, Urine Negative (Negative); Clarity Clear (Clear); Glucose, Urine (Dipstick) Normal (Negative); Ketone, Urine Negative (Negative); Leukocyte Negative Leu/uL (Negative); Nitrite Negative (Negative); Protein, Urine (Dipstick) 30 mg/dL (Neg-Trace); Specific Gravity, Urine 1.024 (1.002-1.036); Urobilinogen 3 mg/dL (Less than 2); pH, Urine 5.5 (5.0-9.0)
[2022-04-05 22:04] LABS: ALT (SGPT) 26 U/L (8-55); AST (SGOT) 33 U/L (5-34); Alkaline Phosphatase 103 U/L (40-110); Anion Gap 14 mmol/L (10-20); BUN (Urea Nitrogen) 13 mg/dL (9.8-20.1); Calc. Creatinine Clearance 0 mL/min (70-130); Calcium 9.4 mg/dL (7.8-10.44); Carbon Dioxide 25 mmol/L (23-31); Chloride 101 mmol/L (98-107); Estimated GFR 78; Globulin 3.5 g/dL (2.4-3.5); Glucose 112 mg/dL (83-110); Potassium 3.7 mmol/L (3.5-5.1); Protein, Total 7.5 g/dL (5.8-8.1); Sodium 136 mmol/L (136-145)
[2022-04-05 23:30] LABS: Lipase 20 U/L (8-78)
[2022-04-05 23:31] LABS: CK (CPK) 74 U/L (29-168)
[2022-04-06 00:26] LABS: CKMB 0.8 ng/mL (0-6.6)
[2022-04-06] MEDS ORDERED: Acetaminophen 650 MG Suppository PR PRN (00:33)
[2022-04-06] MEDS ORDERED: Ondansetron PF 4 MG/2 ML Vial IVP PRN (00:33)
[2022-04-06] MEDS ORDERED: Ondansetron ODT 4 MG TAB PO PRN (00:33)
[2022-04-06 01:31] LABS: Troponin I 0.071 ng/mL (< 0.028)
[2022-04-06] MEDS ORDERED: Piperacillin/Tazobactam 3.375 GM in Sodium Chloride 0.9% 100 ML IVPB SCH (03:15)
[2022-04-06] MEDS: Sodium Chloride 0.9% 1,000 ML IV SCH ×2 (03:52→12:23)
[2022-04-06] MEDS ORDERED: Piperacillin/Tazobactam 4.5 GM VIAL ONE (04:09)
[2022-04-06] MEDS ORDERED: Piperacillin/Tazobactam 3.375 GM VIAL ONE ×2 (04:18→11:17)
[2022-04-06 07:07] LABS: #Lymphocytes 1.2 thou/uL (1.20-3.40); #Monocytes 0.6 thou/uL (0.11-0.59); #Neutrophils 5.8 thou/uL (1.40-6.50); %Basophils 0.1 % (0.0-1.0); %Eosinophils 0.2 % (0.0-10.0); %Lymphocytes 15.8 % (21.0-51.0); %Monocytes 8.2 % (0.0-10.0); %Neutrophils 75.6 % (42.0-75.0); Hemoglobin 15.3 g/dL (12.0-16.0); Mean Corpuscular HGB CONC 31.9 g/dL (32.0-36.0); Mean Corpuscular Hemoglobin 30.7 pg (27.0-31.0); Mean Corpuscular Volume 96.3 fL (78.0-98.0); Platelet Count 153 thou/uL (130-400); RBC Distribution Width 13.8 % (11.5-14.5); Red Blood Cell (RBC) Count 4.98 mill/uL (4.20-5.40); White Blood Cell (WBC) Count 7.7 thou/uL (4.8-10.8)
[2022-04-06 07:19] LABS: Hemoglobin A1c 5.8 % (4.0-6.0)
[2022-04-06 07:30] LABS: Anion Gap 13 mmol/L (10-20); BUN (Urea Nitrogen) 10 mg/dL (9.8-20.1); Calc. Creatinine Clearance 100 mL/min (70-130); Calcium 9.3 mg/dL (7.8-10.44); Carbon Dioxide 27 mmol/L (23-31); Chloride 105 mmol/L (98-107); Estimated GFR 88; Glucose 103 mg/dL (83-110); Potassium 3.6 mmol/L (3.5-5.1); Sodium 141 mmol/L (136-145)
[2022-04-06] MEDS ORDERED: ISOVUE-370 76%-LOCM 1 ML ONE (08:00)
[2022-04-06] MEDS: Piperacillin/Tazobactam 3.375 GM in Sodium Chloride 0.9% 100 ML IVPB SCH ×2 (11:23→16:37)
[2022-04-06] MEDS: Apixaban 5 MG TAB PO SCH ×2 (12:23→20:47)
[2022-04-06] MEDS: Carvedilol 25 MG TAB PO SCH ×2 (12:23→16:33)
[2022-04-06 13:26] VITALS: BMI 35.8
[2022-04-06] MEDS: Acetaminophen 325 MG TAB PO PRN (20:47)
[2022-04-07] MEDS: Piperacillin/Tazobactam 3.375 GM in Sodium Chloride 0.9% 100 ML IVPB SCH ×3 (00:52→15:10)
[2022-04-07] MEDS: Sodium Chloride 0.9% 1,000 ML IV SCH ×2 (09:51→17:44)
[2022-04-07] MEDS: Apixaban 5 MG TAB PO SCH ×2 (09:51→20:08)
[2022-04-07] MEDS: Amiodarone 200 MG TAB PO SCH (09:51)
[2022-04-07] MEDS: Carvedilol 25 MG TAB PO SCH ×2 (09:51→17:44)
[2022-04-07] MEDS: Acetaminophen 325 MG TAB PO PRN (09:52)
[2022-04-08] MEDS: Piperacillin/Tazobactam 3.375 GM in Sodium Chloride 0.9% 100 ML IVPB SCH ×2 (00:01→08:22)
[2022-04-08] MEDS ORDERED: traZODone HCl 50 MG TAB PO PRN (03:35)
[2022-04-08] MEDS ORDERED: Melatonin 3 MG TAB PO PRN (03:36)
[2022-04-08] MEDS: Amiodarone 200 MG TAB PO SCH (08:23)
[2022-04-08] MEDS: Apixaban 5 MG TAB PO SCH (08:23)
[2022-04-08] MEDS: Carvedilol 25 MG TAB PO SCH (08:23)
[2022-04-08] MEDS: Sodium Chloride 0.9% 1,000 ML IV SCH (10:21)
[2022-04-08 11:47] VITALS: BP 160/70; TEMP 98.1
== END 2022-04-08 11:20 | disposition home or self-care (01) | DRG 872 ==
LOC: ERS 20:31 → ERHOLD 04-06 00:16 → 2NO 04-06 12:41 → OBSVTOIN 04-06 12:57
PROVIDERS: ADMIT Internal Medicine; ATTEND Internal Medicine
DX: A41.9 Sepsis, unspecified organism (principal); L03.211 Cellulitis of face; I48.20 Chronic atrial fibrillation, unspecified; Z20.822 Contact with and (suspected) exposure to COVID-19; I69.954 Hemiplegia and hemiparesis following unspecified cerebrovascular disease affecting left non-dominant side; K04.7 Periapical abscess without sinus; I50.9 Heart failure, unspecified; I11.0 Hypertensive heart disease with heart failure; J44.9 Chronic obstructive pulmonary disease, unspecified; Z79.01 Long term (current) use of anticoagulants; Z79.899 Other long term (current) drug therapy; Z79.52 Long term (current) use of systemic steroids; Z90.49 Acquired absence of other specified parts of digestive tract
CPT/HCPCS: 36415; 51701; 70450; 70487; 70551; 71045; 80048; 80053; 81003; 81015; 82550; 82553; 83036; 83605; 83690; 83880; 84484; 85025; 87040; 87086; 87804; 93005; 96361; 96365; J0692; J2543; J3490; J7050; Q9966; U0003; U0005

== ENCOUNTER 2023-01-14 14:39 | Outpatient (CLI) | payer MEDICARE | END 2023-01-14 14:40 | disposition home or self-care (01) | LOC: BICRAD 14:39 | PROVIDERS: ATTEND Nurse Practitioner Family | DX: R06.02 Shortness of breath (principal); I51.7 Cardiomegaly | CPT/HCPCS: 71046 ==

== ENCOUNTER 2024-02-28 02:40 | Inpatient (IN) | payer MEDICARE ==
[2024-02-28 03:41] VITALS: BMI 35.1
[2024-02-28] MEDS ORDERED: Acetaminophen 325 MG TAB PO PRN (04:01)
[2024-02-28] MEDS ORDERED: Acetaminophen 650 MG Suppository PR PRN (04:01)
[2024-02-28] MEDS ORDERED: Ondansetron ODT 4 MG TAB PO PRN (04:01)
[2024-02-28] MEDS ORDERED: Ondansetron PF 4 MG/2 ML Vial IVP PRN (04:01)
[2024-02-28] MEDS ORDERED: hydrALAZINE 20 MG/ML VIAL SLOW IVP PRN (04:05)
[2024-02-28 04:30] LABS: #Basophils 0.05 10x3/uL (0.0-0.2); %Basophils 0.8 % (0.0-1.0); %Eosinophils 1.8 % (0.0-10.0); %Lymphocytes 26.1 % (21.0-51.0); %Monocytes 7.8 % (0.0-10.0); %Neutrophils 63.3 % (42.0-75.0); Hematocrit 44.3 % (36.0-47.0); Hemoglobin 15.2 g/dL (12.0-16.0); Mean Corpuscular HGB CONC 34.3 g/dL (32.0-36.0); Mean Corpuscular Hemoglobin 31.5 pg (27.0-31.0); Mean Corpuscular Volume 91.7 fL (78.0-98.0); Mean Platelet Volume 11.6 fL (7.4-10.4); Platelet Count 189 10x3/uL (130-400); RBC Distribution Width 14.3 % (11.5-14.5); Red Blood Cell (RBC) Count 4.83 mill/uL (4.20-5.40)
[2024-02-28 04:48] LABS: Anion Gap 12 mmol/L (10-20); BUN (Urea Nitrogen) 10 mg/dL (9.8-20.1); Calc. Creatinine Clearance 104 mL/min (70-130); Calcium 8.9 mg/dL (7.8-10.44); Carbon Dioxide 24 mmol/L (23-31); Cardiac Risk 3.2 (Less than 4.5); Chloride 110 mmol/L (98-107); Cholesterol 108 mg/dl (< 200 Desired); Estimated GFR 92; Glucose 104 mg/dL (83-110); HDL Cholesterol 34 mg/dL (>60 Neg Risk); LDL Cholesterol, Calculated 46 mg/dL; Potassium 3.5 mmol/L (3.5-5.1); Sodium 142 mmol/L (136-145); Triglycerides 141 mg/dL (Less than 150)
[2024-02-28 05:03] LABS: Troponin I 0.057 ng/mL (< 0.028)
[2024-02-28] MEDS ORDERED: Aspirin 81 mg Enteric Coated Tablet PO SCH (09:00)
[2024-02-28] MEDS: Multivit, Therapeutic 1 TAB PO SCH (10:11)
[2024-02-28] MEDS: Aspirin 81 mg Enteric Coated Tablet PO SCH (10:11)
[2024-02-28] MEDS ORDERED: Magnesium 2 GM/50 ML(in water) 2 GM in Premix 1 BAG IVPB SCH (13:15)
[2024-02-28] MEDS: Apixaban 5 MG TAB PO SCH (21:09)
[2024-02-29 05:00] LABS: #Basophils 0.07 10x3/uL (0.0-0.2); %Basophils 1.2 % (0.0-1.0); %Eosinophils 1.8 % (0.0-10.0); %Lymphocytes 27.6 % (21.0-51.0); %Monocytes 8.5 % (0.0-10.0); %Neutrophils 60.7 % (42.0-75.0); Hematocrit 45.9 % (36.0-47.0); Hemoglobin 15.8 g/dL (12.0-16.0); Mean Corpuscular HGB CONC 34.4 g/dL (32.0-36.0); Mean Corpuscular Hemoglobin 31.7 pg (27.0-31.0); Mean Corpuscular Volume 92.2 fL (78.0-98.0); Mean Platelet Volume 12.5 fL (7.4-10.4); Platelet Count 200 10x3/uL (130-400); RBC Distribution Width 14.4 % (11.5-14.5); Red Blood Cell (RBC) Count 4.98 mill/uL (4.20-5.40)
[2024-02-29 05:17] LABS: Anion Gap 15 mmol/L (10-20); BUN (Urea Nitrogen) 9 mg/dL (9.8-20.1); Calc. Creatinine Clearance 93 mL/min (70-130); Calcium 9.7 mg/dL (7.8-10.44); Carbon Dioxide 25 mmol/L (23-31); Chloride 108 mmol/L (98-107); Estimated GFR 87; Glucose 93 mg/dL (83-110); Hemoglobin A1c 5.6 % (4.0-6.0); Potassium 3.5 mmol/L (3.5-5.1); Sodium 144 mmol/L (136-145)
[2024-02-29] MEDS: Amiodarone 200 MG TAB PO SCH (08:59)
[2024-02-29] MEDS ORDERED: Apixaban 5 MG TAB PO SCH (09:00)
[2024-02-29] MEDS: traMADol HCl 50 MG TAB PO PRN (10:34)
[2024-02-29] MEDS ORDERED: Barium Sulfate 96% 176 GM BOT (xray ONLY) ONE (13:40)
[2024-02-29] MEDS ORDERED: Ipratropium/Albuterol 3 ML NEB NEB PRN (13:53)
[2024-02-29] MEDS: Ipratropium/Albuterol 3 ML NEB NEB SCH (19:53)
[2024-02-29] MEDS: Melatonin 3 MG TAB PO PRN (21:07)
[2024-03-01 04:29] LABS: #Basophils 0.05 10x3/uL (0.0-0.2); %Basophils 0.7 % (0.0-1.0); %Eosinophils 1.3 % (0.0-10.0); %Lymphocytes 21.3 % (21.0-51.0); %Monocytes 6.5 % (0.0-10.0); %Neutrophils 69.9 % (42.0-75.0); Hematocrit 47.1 % (36.0-47.0); Hemoglobin 15.9 g/dL (12.0-16.0); Mean Corpuscular HGB CONC 33.8 g/dL (32.0-36.0); Mean Corpuscular Hemoglobin 31.5 pg (27.0-31.0); Mean Corpuscular Volume 93.3 fL (78.0-98.0); Mean Platelet Volume 12.1 fL (7.4-10.4); Platelet Count 211 10x3/uL (130-400); RBC Distribution Width 14.2 % (11.5-14.5); Red Blood Cell (RBC) Count 5.05 mill/uL (4.20-5.40)
[2024-03-01 04:45] LABS: Anion Gap 14 mmol/L (10-20); BUN (Urea Nitrogen) 15 mg/dL (9.8-20.1); Calc. Creatinine Clearance 81 mL/min (70-130); Calcium 9.9 mg/dL (7.8-10.44); Carbon Dioxide 26 mmol/L (23-31); Chloride 103 mmol/L (98-107); Estimated GFR 73; Glucose 100 mg/dL (83-110); Potassium 3.8 mmol/L (3.5-5.1); Sodium 139 mmol/L (136-145)
[2024-03-01] MEDS: Lisinopril 5 MG TAB PO SCH (09:23)
[2024-03-01 12:06] VITALS: BP 121/79; TEMP 98.1
[2024-03-01 14:21] LABS: Free T4 (Free Thyroxine) 1.35 ng/dL (0.70-1.48)
[2024-03-01] MEDS ORDERED: Carvedilol 3.125 MG TAB PO SCH (17:00)
== END 2024-03-01 16:44 | disposition home health service (06) | DRG 57 ==
LOC: 2SE 02:41 → OBSVTOIN 14:34
PROVIDERS: ADMIT Student in an Organized Health Care Education/Training Program; ATTEND Family Medicine
DX: I69.854 Hemiplegia and hemiparesis following other cerebrovascular disease affecting left non-dominant side (principal); I5A Non-ischemic myocardial injury (non-traumatic); D75.1 Secondary polycythemia; I48.91 Unspecified atrial fibrillation; I50.9 Heart failure, unspecified; J44.9 Chronic obstructive pulmonary disease, unspecified; Z79.01 Long term (current) use of anticoagulants; Z79.899 Other long term (current) drug therapy; Z90.49 Acquired absence of other specified parts of digestive tract
CPT/HCPCS: 36415; 70496; 70498; 70551; 71045; 72141; 74230; 80048; 80061; 83036; 84439; 84443; 84481; 84484; 85025; 93306; 94640; J7620

== ENCOUNTER 2024-09-22 16:44 | Observation (INO) | payer MEDICARE ==
[~2024-09-22 16:44] MED LIST changes: -Dexamethasone 20 MG/5 ML VIAL ONE; +Iopamidol-370 76% 500 ML MDV (1 ML CHARGE) ONE; -Lidocaine 1% PF 5 ML VIAL ONE; -Ondansetron PF 4 MG/2 ML Vial ONE; -PHENYLEPHRINE-NS 100 MCG/ML 10 ML SYRINGE ONE; -PROPOFOL 200 MG/20 ML VIAL ONE; -Succinylcholine 200 MG/10 ml SYRINGE FS ONE
[2024-09-22 17:20] LABS: ALT (SGPT) 46 U/L (8-55); AST (SGOT) 55 U/L (5-34); Alkaline Phosphatase 109 U/L (40-110); Anion Gap 15 mmol/L (10-20); BUN (Urea Nitrogen) 16 mg/dL (9.8-20.1); Bilirubin, Total 0.7 mg/dL (0.2-1.2); Calc. Creatinine Clearance 0 mL/min (70-130); Calcium 9.8 mg/dL (7.8-10.44); Carbon Dioxide 23 mmol/L (23-31); Chloride 107 mmol/L (98-107); Estimated GFR 59; Globulin 4.1 g/dL (2.4-3.5); Glucose 131 mg/dL (83-110); Lipase 24 U/L (8-78); Magnesium 2.6 mg/dL (1.6-2.6); Potassium 4.6 mmol/L (3.5-5.1); Protein, Total 8.1 g/dL (5.8-8.1); Sodium 140 mmol/L (136-145)
[2024-09-22 17:25] LABS: Troponin I 0.121 ng/mL (< 0.028)
[2024-09-22 17:26] LABS: #Basophils 0.08 10x3/uL (0.0-0.2); %Basophils 1.2 % (0.0-1.0); %Lymphocytes 25.4 % (21.0-51.0); %Monocytes 7.8 % (0.0-10.0); %Neutrophils 64.5 % (42.0-75.0); Hematocrit 58.6 % (36.0-47.0); Hemoglobin 19.7 g/dL (12.0-16.0); Mean Corpuscular HGB CONC 33.6 g/dL (32.0-36.0); Mean Corpuscular Hemoglobin 30.9 pg (27.0-31.0); Mean Corpuscular Volume 91.8 fL (78.0-98.0); Mean Platelet Volume 12.2 fL (7.4-10.4); Platelet Count 224 10x3/uL (130-400); RBC Distribution Width 15.5 % (11.5-14.5); Red Blood Cell (RBC) Count 6.38 mill/uL (4.20-5.40)
[2024-09-22] MEDS ORDERED: fentaNYL 50 mcg/mL 1 mL Vial ONE (18:01)
[2024-09-22 18:33] LABS: INR-International Normal Ratio 1.4; PTT 33.1 sec (22.9-36.1); Prothrombin Time 17.3 sec (12.0-14.7)
[2024-09-22] MEDS ORDERED: Nitroglycerin 0.4 MG TAB (25 Tab Bottle) SL PRN (18:43)
[2024-09-22] MEDS ORDERED: Ondansetron ODT 4 MG TAB PO PRN (18:46)
[2024-09-22] MEDS ORDERED: Senokot S 8.6-50 MG TAB PO PRN (18:46)
[2024-09-22] MEDS ORDERED: Acetaminophen 650 MG Suppository PR PRN (18:46)
[2024-09-22] MEDS ORDERED: Ondansetron PF 4 MG/2 ML Vial IVP PRN (18:46)
[2024-09-22] MEDS ORDERED: Aspirin Chewable 81 MG TAB ONE (18:49)
[2024-09-22] MEDS ORDERED: Furosemide 40 MG (4 mL) VIAL ONE (18:49)
[2024-09-22 21:45] LABS: Troponin I 0.108 ng/mL (< 0.028)
[2024-09-22] MEDS: Atorvastatin Calcium 40 MG TAB PO SCH (21:59)
[2024-09-22] MEDS: Apixaban 5 MG TAB PO SCH (22:03)
[2024-09-22 22:26] VITALS: BMI 34.8
[2024-09-22] MEDS: Melatonin 3 MG TAB PO PRN (23:04)
[2024-09-23 00:20] LABS: Troponin I 0.116 ng/mL (< 0.028)
[2024-09-23 04:30] LABS: #Basophils 0.05 10x3/uL (0.0-0.2); %Basophils 0.9 % (0.0-1.0); %Eosinophils 1.2 % (0.0-10.0); %Lymphocytes 26.9 % (21.0-51.0); %Monocytes 7.5 % (0.0-10.0); %Neutrophils 63.2 % (42.0-75.0); Hematocrit 52.5 % (36.0-47.0); Hemoglobin 17.3 g/dL (12.0-16.0); Mean Corpuscular Hemoglobin 30.4 pg (27.0-31.0); Mean Corpuscular Volume 92.3 fL (78.0-98.0); Mean Platelet Volume 12.7 fL (7.4-10.4); Platelet Count 218 10x3/uL (130-400); RBC Distribution Width 14.9 % (11.5-14.5); Red Blood Cell (RBC) Count 5.69 mill/uL (4.20-5.40)
[2024-09-23 04:43] LABS: Anion Gap 11 mmol/L (10-20); BUN (Urea Nitrogen) 15 mg/dL (9.8-20.1); Calc. Creatinine Clearance 75 mL/min (70-130); Calcium 9.3 mg/dL (7.8-10.44); Carbon Dioxide 28 mmol/L (23-31); Chloride 105 mmol/L (98-107); Estimated GFR 75; Glucose 118 mg/dL (83-110); Potassium 3.4 mmol/L (3.5-5.1); Sodium 141 mmol/L (136-145)
[2024-09-23] MEDS: Furosemide 20 MG (2 mL) VIAL SLOW IVP SCH (05:53)
[2024-09-23] MEDS: Amiodarone 200 MG TAB PO SCH (09:31)
[2024-09-23] MEDS: Aspirin Chewable 81 MG TAB PO SCH (09:31)
[2024-09-23] MEDS: Lisinopril 5 MG TAB PO SCH (09:31)
[2024-09-23] MEDS: Pantoprazole DR 40 MG TAB PO SCH (09:31)
[2024-09-23] MEDS: Apixaban 5 MG TAB PO SCH (09:33)
[2024-09-24 08:49] LABS: Anion Gap 12 mmol/L (10-20); BUN (Urea Nitrogen) 16 mg/dL (9.8-20.1); Calc. Creatinine Clearance 80 mL/min (70-130); Carbon Dioxide 28 mmol/L (23-31); Chloride 107 mmol/L (98-107); Estimated GFR 81; Glucose 106 mg/dL (83-110); Potassium 3.8 mmol/L (3.5-5.1); Sodium 143 mmol/L (136-145)
[2024-09-24] MEDS: Acetaminophen 325 MG TAB PO PRN (11:07)
[2024-09-24 15:21] VITALS: BP 121/68; TEMP 98.2
== END 2024-09-24 17:37 | disposition home or self-care (01) ==
LOC: ERS 16:44 → OBS 18:45
PROVIDERS: ADMIT Family Medicine; ATTEND Family Medicine
PROC: B246ZZZ Ultrasonography of Right and Left Heart (ICD-10-PCS; principal; 2024-09-22)
DX: R07.89 Other chest pain (principal); I08.1 Rheumatic disorders of both mitral and tricuspid valves; I31.39 Other pericardial effusion (noninflammatory); I11.0 Hypertensive heart disease with heart failure; I50.33 Acute on chronic diastolic (congestive) heart failure; E78.5 Hyperlipidemia, unspecified; D75.1 Secondary polycythemia; R53.1 Weakness; I48.0 Paroxysmal atrial fibrillation; I69.354 Hemiplegia and hemiparesis following cerebral infarction affecting left non-dominant side; R79.89 Other specified abnormal findings of blood chemistry; J44.9 Chronic obstructive pulmonary disease, unspecified; Z79.01 Long term (current) use of anticoagulants; Z79.899 Other long term (current) drug therapy; Z98.890 Other specified postprocedural states; Z90.49 Acquired absence of other specified parts of digestive tract; Z90.89 Acquired absence of other organs
CPT/HCPCS: 70450; 71045; 71275; 80048 ×2; 80053; 83690; 83735; 83880; 84484 ×2; 85025 ×2; 85610; 85730; 87428; 93005 ×2; 93306; 94760; 96374; 96375; 96376 ×2; 97112; 97530; 99285; G0378 ×4; J1940 ×3; J3010; Q9967; 36415; 93010